=== PATIENT | male | born 1990 | race Caucasian/White ===

== ENCOUNTER 2019-02-08 07:58 | Outpatient (CLI) | payer OTHER ==
--- NOTE | 2019-02-08 09:02 | ULT ---
ABDOMINAL ULTRASOUND: DATE: 02/08/2019. COMPARISON: None. HISTORY: Stomach pain, abdominal pain, nausea and vomiting. TECHNIQUE: Multiplanar grayscale sonographic imaging of the abdomen obtained. FINDINGS: Imaged IVC and aorta appear grossly unremarkable. Imaged pancreas is grossly unremarkable. No focal liver lesion or intrahepatic biliary dilatation is noted. No gallbladder wall thickening or pericholecystic fluid. No gallstones are noted. The metals sales representative suárez s not indicate a positive Bone's sign. The common bile duct measures 3 mm, within normal limits. Minimal sludge is noted within the gallbladder. The right kidney measures 10.5 cm in craniocaudal dimension and demonstrates no discrete stone, hydro nephrosis, or mass. Left kidney measures 11.8 cm in craniocaudal dimension and demonstrates no discrete stone, hydronephr osis, or mass. Spleen measures up to 11.2 cm, within normal limits. IMPRESSION: No evidence for cholelithiasis, cholecystitis, or biliary dilatation. Transcribed Date/Time: 02/08/2019 10:35 AM
== END 2019-02-08 07:59 | disposition home or self-care (01) ==
LOC: ULT 07:58
PROVIDERS: ATTEND Nurse Practitioner Family
DX: R10.9 Unspecified abdominal pain (principal)
CPT/HCPCS: 76700